=== PATIENT | male | born 2000 | race Caucasian/White ===

== ENCOUNTER 2022-01-11 11:01 | Emergency (ER) | payer BC, MEDICAID, SELFPAY ==
[2022-01-11 11:48] VITALS: BP 145/70; PULSE 56; RESP 14; TEMP 36.9; O2SAT 99; BMI 27.4
--- NOTE | 2022-01-11 12:21 | XRR_ITS ---
PROCEDURE INFORMATION: Exam: XR Left Ankle Exam date and time: 01/11/2022 12:23 PM Age: 21 years old Clinical indication: Pain; Ankle; Left; Additional info: Trauma TECHNIQUE: Imaging protocol: Radiologic exam of the Left ankle. Views: 3 or more views. COMPARISON: No relevant prior studies available. FINDINGS: Bones/joints: No evidence for acute fracture. There is a tibiotalar joint effusion. Soft tissues: There is edema in the soft tissues. XR/XR ankle LT min 3V* [id number] IMPRESSION: 1. There is edema in the soft tissues. 2. There is a tibiotalar joint effusion.
--- NOTE | 2022-01-11 12:21 | ED_ITS ---
HPI - Extremity Problem General: Chief complaint: Extremity Injury, Lower Stated complaint: left ankle injury Time Seen by Provider: 01/11/22 12:20 History of Present Illness: 21 yo male patient presents to ER with left ankle pain and swelling. Pt states he was playing basketball 3 days ago and landing on it, heard a pop and had immediate swelling. Pt states since that time the swelling has somewhat improved but is still painful when he ambulates. Pt is about to leave to play college baseball and was advised to have an xray. Pt denies any other injury or trauma. Pt denies any numbness or tingling. Associated symptoms: Deny chest pain or fever(s) Review of Systems Const: Denies: fever(s) or chills Card: Denies: chest pain or palpitations Resp: Denies: dyspnea or productive cough Musc: Reports: extremity pain (left lateral ankle pain and swelling) Psych: Denies: anxiety, depression, suicidal ideation or homicidal ideation Physical Exam Const: COMMON NORMALS: no acute distress, average body habitus, patient oriented x3, no limitations, healthy appearing, alert and well nourished Neck/C-Spine: COMMON NORMALS: no JVD Resp: COMMON NORMALS: normal respiratory effort and No retractions Cardio: COMMON NORMALS: no JVD, regular rate and regular rhythm RATE: regular rate RHYTHM: regular rhythm : COMMON NORMALS: Yes no CVA tenderness BLADDER/KIDNEY EXAM: Yes no CVA tenderness Back/Pelvis: COMMON NORMALS: no CVA tenderness, thoracic and lumbar spine normal to inspection, no thoracic nor lumbar tenderness and thoraco-lumbar ROM normal Extremity: NARRATIVE EXTREMITY EXAM: Pt has edema noted to the lateral aspect of left ankle Pt is NVI distally Neuro: COMMON NORMALS: patient oriented x3 SENSORIUM/ORIENTATION: Yes alert Course Vital Signs: Vital signs: Vital Signs Temperature 98.5 F 01/11/22 11:48 Pulse Rate 56 L 01/11/22 11:48 Respiratory Rate 14 01/11/22 11:48 Blood Pressure 145/70 01/11/22 11:48 Pulse Oximetry 99 01/11/22 11:48 MDM - Extremity (Nontraumatic) Medical Decision Making Patient is well appearing non toxic and in no acute distress. 21 yo male patient presents to ER with left ankle pain and swelling. Pt states he was playing basketball 3 days ago and landing on it, heard a pop and had immediate swelling. Pt states since that time the swelling has somewhat improved but is still painful when he ambulates. Pt is about to leave to play college baseball and was advised to have an xray. Pt denies any other injury or trauma. Pt denies any numbness or tingling. Pt is NVI distally. Xray does not reveal any acute fracture or dislocation. Clinical exam findings are c/w sprin. I will place in air cast and crutches and have follow upin 1-2 weeks. Pt is stable for discharge Lab Data Radiology Impressions Ankle X-Ray 01/11/22 12:21 IMPRESSION: 1. There is edema in the soft tissues. 2. There is a tibiotalar joint effusion. Discharge Plan Discharge Patient Disposition: Home Clinical Impression: Ankle sprain and strain Condition: Stable Discharge Orders: Discharge ED (Routine); Ordered 01/11/22 Ordered By: Rafaela Crisostomo Referrals: Renee James FNP [Primary Care Provider] - (Please follow up in 1 -2 weeks) Discharge Diet: Advance as tolerated Discharge Activity: Limit activity as instructed Patient Instructions: Opioid Safety Activity Restrictions/Additional Instructions: Please wear splint and use crutches for 2 weeks Please follow up with PCP if no improvement in 2 weeks Rest Ice Elevate May take Ibuprofen for pain Coding Level of Care Code ED [employer] for Maria Victoria Myers
== END 2022-01-11 13:58 | disposition home or self-care (01) ==
PROVIDERS: Emergency Provider Registered Nurse; PCP Nurse Practitioner Family
DX: S93.402A Sprain of unspecified ligament of left ankle, initial encounter (principal); S96.912A Strain of unspecified muscle and tendon at ankle and foot level, left foot, initial encounter; X58.XXXA Exposure to other specified factors, initial encounter; Y93.67 Activity, basketball
CPT/HCPCS: 73610; 99283